=== PATIENT | male | born 1995 | race Caucasian/White ===

== ENCOUNTER 2019-10-20 10:27 | Outpatient (CLI) | payer OTHER, SELFPAY ==
--- NOTE | ~2019-10-20 | MR_ITS ---
EXAMINATION: MR knee LT wo con DATE: 10/20/2019 11:13 INDICATION: Medial left knee pain and difficulty bending post fall 6 days prior. TECHNIQUE: Magnetic resonance imaging (MRI) of the left knee was performed without intravenous contra st. Sequences included coronal PD-weighted FSE, coronal PD-weighted FS FSE, sagittal T2-weighted FSE , sagittal PD-weighted FS FSE and axial PD weighted fat saturated FSE. COMPARISON: None. FINDINGS: Medial compartment: Medial meniscus is normal. Articular cartilage is normal. Lateral compartment: Lateral meniscus is normal. Articular cartilage is normal. Patellofemoral compartment: Articular cartilage is normal. Ligaments and tendons: Anterior and posterior cruciate ligaments are normal. Moderate grade sprain/partial tear of the proxi mal medial collateral ligament. The fibular collateral ligament is normal. The extensor mechanism is normal. The visualized medial and lateral hamstring tendons as well as the iliotibial band are normal . Fluid: Small knee joint effusion at the suprapatellar pouch. No loose osteochondral bodies identified. Osseous/other: Normal marrow signal. No fracture or pathologic marrow replacing process. IMPRESSION: 1. Moderate grade sprain/partial tear of the medial collateral ligament. Otherwise normal left knee M RI. Reviewed, dictated and finalized at location A. IMPRESSION: 1. Moderate grade sprain/partial tear of the medial collateral ligament. Otherw ise normal left knee MRI.
== END 2019-10-20 10:28 ==
PROVIDERS: Visit Provider Orthopaedic Surgery
DX: M25.562 Pain in left knee (principal); S83.412A Sprain of medial collateral ligament of left knee, initial encounter
CPT/HCPCS: 73721

== ENCOUNTER 2021-03-24 10:50 | Emergency (ER) | payer OTHER, SELFPAY ==
[2021-03-24 12:03] VITALS: BP 156/92; PULSE 87; RESP 18; TEMP 37.4; O2SAT 99
--- NOTE | 2021-03-24 13:12 | ED.URI ---
HPI - URI/Sore Throat General Chief Complaint: Upper Respiratory Infection Stated Complaint: fatigue,headache,cough,congestion Time Seen by Provider: 03/24/21 13:04 Source: patient and RN notes reviewed Mode of arrival: ambulatory Limitations: no limitations History of Present Illness HPI Narrative: Patient presents today complaining of a 2-day history of fever up to 104, cough, fatigue, sore throat, headache, shortness of breath with exertion. He has been taking Mucinex and ibuprofen with some relief. He has not been vaccinated against COVID-19. MD elicited complaint: fever and cough Related Data Home Medications Medication Instructions Recorded Confirmed No Home Medications 03/24/21 03/24/21 Allergies Allergy/AdvReac Type Severity Reaction Status Date / Time No Known Allergies Allergy Verified 03/24/21 12:19 Review of Systems Review of Systems: CONSTITUTIONAL: Denies body aches, chills, or sweats.+ Fever, fatigue EYES: Denies visual changes, redness, or discharge. ENT: Denies rhinorrhea, congestion, or otalgia.+ Sore throat CARDIOVASCULAR: Denies chest pain, palpitations, or edema. RESPIRATORY: + Cough, shortness of breath with exertion GASTROINTESTINAL: Denies abdominal pain, nausea, vomiting, or diarrhea. GENITOURINARY: Denies dysuria or hematuria. SKIN: Denies rash, itching, or wounds. MUSCULOSKELETAL: Denies back pain, joint pain, or myalgia. NEUROLOGIC: Denies numbness, tingling, or weakness.+ Headache PSYCH: Denies depression or anxiety. PMFSH Comments At time of signature, I have reviewed and agree with nursing past medical, surgical, social and family history unless otherwise noted. Please see nursing chart for further information. There is no relevant family history pertinent to the presenting complaint Exam Narrative: GENERAL: Mildly ill-appearing, well-nourished, and in no acute distress. HEAD: Normocephalic, atraumatic. EYES: EOMI. No redness or drainage. Conjunctivae normal. ENT: Mucous membranes pink and moist. Nares congested. No rhinorrhea. TMs normal bilaterally. Throat normal. Uvula midline. NECK: Normal AROM. Supple. No lymphadenopathy. CHEST: No respiratory distress. Clear to auscultation. HEART: Regular rate and rhythm. No murmur appreciated. Normal peripheral pulses. EXTREMITIES: Normal range of motion. No edema. SKIN: Warm, dry, no rash. Capillary refill normal. Normal skin turgor. NEURO: No focal deficits. Alert and oriented x3. Gait steady. PSYCH: Normal affect. No signs of depression or anxiety. Course Course Level of Care: Express Care Visit Vital Signs Vital signs: Vital Signs Temperature 99.3 F 03/24/21 12:03 Pulse Rate 87 03/24/21 12:03 Respiratory Rate 18 03/24/21 12:03 Blood Pressure 156/92 H 03/24/21 12:03 Pulse Oximetry 99 03/24/21 12:03 Temperature 99.3 F 03/24/21 12:03 Pulse Rate 87 03/24/21 12:03 Respiratory Rate 18 03/24/21 12:03 Blood Pressure 156/92 H 03/24/21 12:03 Pulse Oximetry 99 03/24/21 12:03 Reviewed. Pt has been instructed to follow up with his PCP regarding his elevated blood pressure today. MDM - URI/Sore Throat Differential Diagnosis Differential diagnosis: Likely upper respiratory infection, viral infection, influenza and other (COVID-19) Lab Data Attestation: I reviewed the patient's lab results. Labs: Lab Results 03/24/21 Range/Units 12:14 POC SARS CoV-2 Ag Positive (Negative) Critical Care Time Critical Care Time Critical Care Time: No Discharge Plan Discharge Clinical Impression: COVID-19 Patient Disposition: Home, Self-Care Condition: Stable Instructions: COVID-19 (Coronavirus Disease 2019) (ED) Additional Instructions: You have tested positive for COVID-19 today. Please continue Mucinex and ibuprofen at home for symptoms. If you develop any chest pain, worsening shortness of breath, or any other concerning symptoms, please go to the ER for further evaluat
== END 2021-03-24 13:22 | disposition home or self-care (01) ==
PROVIDERS: Emergency Provider Nurse Practitioner
DX: U07.1 COVID-19 (principal)
CPT/HCPCS: 87426; 99203; C9803; G0463

== ENCOUNTER 2021-06-04 12:24 | Emergency (ER) | payer OTHER, SELFPAY ==
[2021-06-04 12:28] VITALS: BP 138/83; PULSE 77; RESP 19; TEMP 36.2; O2SAT 99
--- NOTE | 2021-06-04 12:39 | ED.GENADULT ---
HPI - General Adult General Chief complaint: Unspecified Stated complaint: Swelling of Throat Time Seen by Provider: 06/04/21 12:31 Source: RN notes reviewed History of Present Illness HPI narrative: Patient presents emergency department from home for sore throat. Patient states symptoms began yesterday states has had a sore throat associated with mild rhinorrhea and a cough this been nonproductive he denies any fevers or chills, ear pain, shortness of breath, chest pain, abdominal pain, nausea vomiting or any other symptoms. He states he last took ibuprofen approximately 30 prior to arrival Related Data Allergies Allergy/AdvReac Type Severity Reaction Status Date / Time No Known Allergies Allergy Verified 03/24/21 12:19 Review of Systems Review of Systems: Gen.: Denies fevers or chills ENT: HPI Respiratory: Denies shortness of breath ports cough CV: Denies chest pain or palpitations GI: Denies abdominal pain nausea, emesis or diarrhea Musculoskeletal: Denies back pain or muscle pain Neuro: Denies numbness, tingling, weakness or focal weakness Skin: Denies rash Except as documented, all other systems reviewed and negative [facility] Past Medical History Medical History (Updated 06/04/21 @ 12:54 by Brenden Bañuelos DO) COVID-19 Social History Social History (Updated 06/04/21 @ 12:41 by Brenden Bañuelos DO) Smoking status: Never smoker Exam Narrative: APPEARANCE: No acute distress, nontoxic, resting in bed EYES: EOMI HEENT: Normocephalic, atraumatic, TMs clear bilaterally nares patent or mucosa moist erythema in posterior pharynx and bilateral tonsils, tonsils 3+ with no white exudate, uvula midline no trismus RESPIRATORY: No respiratory distress Clear to auscultation bilaterally with no rhonchi wheezing or rales. CARDIOVASCULAR: Regular rate and rhythm without murmurs rubs or gallops. ABDOMINAL: Soft, nontender, nondistended, no rebound or guarding MUSCULOSKELETAl: Moves all extremities. No clubbing, cyanosis or edema. NEURO: Awake and alert. Following commands, speech normal, no focal deficits SKIN:: Warm, dry. No rashes lesions or abrasions PSYCHIATRIC: Normal affect/mood, Course Course Emergency Course: Discussed with patient results of workup and diagnosis. Discussed need for follow-up with primary care, proper use of medication, and reasons to return to the emergency department. Patient understands and agrees to current treatment plan Vital Signs Vital signs: Vital Signs Temperature 97.2 F L 06/04/21 12:28 Pulse Rate 77 06/04/21 12:28 Respiratory Rate 19 06/04/21 12:28 Blood Pressure 138/83 06/04/21 12:28 Pulse Oximetry 99 06/04/21 12:28 Temperature 97.2 F L 06/04/21 12:28 Pulse Rate 77 06/04/21 12:28 Respiratory Rate 19 06/04/21 12:28 Blood Pressure 138/83 06/04/21 12:28 Pulse Oximetry 99 06/04/21 12:28 Medical Decision Making Vital Signs Vital Signs: Vital Signs Temperature 97.2 F L 06/04/21 12:28 Pulse Rate 77 06/04/21 12:28 Respiratory Rate 19 06/04/21 12:28 Blood Pressure 138/83 06/04/21 12:28 Pulse Oximetry 99 06/04/21 12:28 Temperature 97.2 F L 06/04/21 12:28 Pulse Rate 77 06/04/21 12:28 Respiratory Rate 19 06/04/21 12:28 Blood Pressure 138/83 06/04/21 12:28 Pulse Oximetry 99 06/04/21 12:28 Lab Data Labs: Strep Screen Presumptive Negative *(Reference Range: Negative)* Discharge Plan Discharge Clinical Impression: Pharyngitis Patient Disposition: Home, Self-Care Condition: Stable Instructions: Antibiotic Form, Pharyngitis (ED) Additional Instructions: Return for increasing throat pain shortness of breath fever or any other symptoms of concern Prescriptions: New amoxicillin 500 mg capsule 500 mg PO Q8H Qty: 30 RF: 0 ibuprofen [IBU] 600 mg tablet 600 mg PO Q6H PRN (Reason: pain) Qty: 20 RF: 0 Follow-up/Referrals: [facility]
[2021-06-04] MEDS: AMOXICILLIN 500 MG CAPSULE PO (13:11)
== END 2021-06-04 13:16 | disposition home or self-care (01) ==
PROVIDERS: Emergency Provider Emergency Medicine
DX: J02.9 Acute pharyngitis, unspecified (principal); Z86.16 Personal history of COVID-19
CPT/HCPCS: 87081; 87880; 99283; A9270

== ENCOUNTER 2022-06-14 11:15 | Emergency (ER) | payer OTHER, SELFPAY ==
[2022-06-14 11:33] VITALS: BP 146/86; PULSE 81; RESP 16; TEMP 36.3; O2SAT 99
--- NOTE | 2022-06-14 12:12 | ED.URI ---
HPI - URI/Sore Throat General Chief Complaint: Upper Respiratory Infection Stated Complaint: congestion,fatigue,sore throat,headache,vomitting Time Seen by Provider: 06/14/22 12:12 Source: patient, RN notes reviewed and old records reviewed Mode of arrival: ambulatory Limitations: no limitations History of Present Illness HPI Narrative: 27 year old male who presents to [facility] with complaints of congestion, fatigue, sore throat headache and vomiting since Tuesday with some productive cough. Patient reports that he has headache pain in frontal area he rates as 8/10. Patient admits to body aches has not had COVID vaccinations or flu shot.Patient reports that he also has hoarseness today has been taking Mucinex for his symptoms, reports no known fever.. MD elicited complaint: cough, sore throat, nasal congestion and other (headache and vomiting) Onset (ago): day(s) (2) Pain scale (0-10): 8 Able to tolerate fluids by mouth: Yes Treatments prior to arrival: other (Mucinex) Related Data Allergies Allergy/AdvReac Type Severity Reaction Status Date / Time No Known Allergies Allergy Verified 06/14/22 11:32 Review of Systems Review of Systems: CONSTITUTIONAL: Denies malaise, chills, sweats, or fever. EYES: Denies visual changes, redness, or discharge. ENT: Reports rhinorrhea, congestion, sinus pain,no otalgia positive for sore throat. CARDIOVASCULAR: Denies chest pain, palpitations, or edema. RESPIRATORY: Reports cough and congestion? Denies dyspnea. GASTROINTESTINAL: Denies abdominal pain, nausea, vomiting, diarrhea SKIN: Denies rash or itching. MUSCULOSKELETAL:Reports myalgia. NEUROLOGIC:Reports headache. All systems reviewed & are unremarkable except as noted in HPI and below PMFSH Past Medical History Medical History COVID-19 Social History Social History Smoking status: Never smoker Tobacco type: cigarettes Alcohol intake: current Drinks per week: 7 Alcohol use details: not during lent Substance use: current Substance use type: marijuana Living arrangements: alone Occupation/Education: occupation Gender identity (if verbalized by the patient): Male Comments At time of signature, agree with nursing past medical, surgical, social and family history. There is no relevant family history pertinent to the presenting complaint Exam Narrative: GENERAL: Well-appearing, well-nourished, and in no acute distress. HEAD: Normocephalic EYES: PERRLA, conjunctivae clear ENT: Nares clear, turbinates edematous and erythematous, clear discharge. Mucous membranes moist. TM pearly turcios with dull light reflex bilaterally; no tragal tenderness. Oropharynx erythematous without lesions. Tonsils enlarged and without exudate, no drooling, positive hoarseness, no trismus, uvula midline. post nasal discharge NECK: Supple. No lymphadenopathy CHEST: Clear to auscultation, breath sounds equal. No wheezing, rhonchi, rales, or stridor. No respiratory distress, speaks in full sentences. cough noted SAO2 99% on room air HEART: Regular rate and rhythm. No murmur heard. SKIN: Warm, dry, no rash. NEURO: Alert and oriented x3. PSYCH: Normal mood and affect Course Course Emergency Course: Patient is aware of diagnosis, understands and agrees to treatment plan.? Anticipatory guidance given.? Patient agrees to follow-up as directed and is aware of reasons to seek care at the emergency department. Portions of this record may have been created with voice recognition software Level of Care: Express Care Visit Vital Signs Vital signs: Vital Signs Temperature 36.3 C L 06/14/22 11:33 Pulse Rate 81 06/14/22 11:33 Respiratory Rate 16 06/14/22 11:33 Blood Pressure 146/86 H 06/14/22 11:33 Pulse Oximetry 99 06/14/22 11:33 Oxygen Delivery Room Air 06/14/22 11:33 Temperature 36.
== END 2022-06-14 13:22 | disposition home or self-care (01) ==
PROVIDERS: Emergency Provider Registered Nurse
DX: J02.9 Acute pharyngitis, unspecified (principal); Z20.822 Contact with and (suspected) exposure to COVID-19
CPT/HCPCS: 87081; 87426; 87880; 99213; C9803; G0463